=== PATIENT | male | born 1995 | race Caucasian/White ===

== ENCOUNTER 2016-10-04 22:10 | Emergency (ER) | payer OTHER ==
[~2016-10-04] VITALS: Ht 185.4 cm; Wt 70.8 kg
[~2016-10-04 22:10] MED LIST: IBUPROFEN600 MG PO; PEPCID40 MG PO
[2016-10-04 23:15] VITALS: BP 134/80
== END 2016-10-04 23:16 | disposition home or self-care (01) ==
LOC: EME 22:10
DX: S60.511A Abrasion of right hand, initial encounter (principal); S60.512A Abrasion of left hand, initial encounter; S50.311A Abrasion of right elbow, initial encounter; V00.131A Fall from skateboard, initial encounter; Y93.51 Activity, roller skating (inline) and skateboarding
CPT/HCPCS: 99281; 99284